=== PATIENT | female | born 2000 | race Caucasian/White ===

== ENCOUNTER 2023-08-23 10:45 | Emergency (ER) | payer BC, SELFPAY ==
[2023-08-23 10:53] VITALS: BP 119/74; PULSE 101; RESP 16; TEMP 36.4; O2SAT 100
--- NOTE | 2023-08-23 11:05 | ED.EAR ---
HPI - Ear Problem General Chief complaint: Ear Stated complaint: Ear Infection Time Seen by Provider: 08/23/23 11:06 Source: patient, RN notes reviewed and old records reviewed Mode of arrival: ambulatory Limitations: no limitations History of Present Illness HPI Narrative: 23-year-old female presents to [facility] with complaint of left ear pain. Patient states was having difficulty hearing, ear pressure for about 2 weeks the pain started 2-3 days ago. Patient denies any other symptoms. MD Complaint: ear pain Location: left ear Duration: constant Severity: moderate Related Data Allergies Allergy/AdvReac Type Severity Reaction Status Date / Time No Known Allergies Allergy Unverified 12/01/14 16:21 Review of Systems Constitutional: Constitutional: Reports no additional constitutional complaints Eyes: Eyes: Reports no additional eye complaints ENT: Reports as per HPI and Reports otalgia Cardiovascular: Cardiovascular: Reports no additional cardiovascular complaints Respiratory: Respiratory: Reports no additional respiratory complaints Neurologic: Reports system reviewed and no additional complaints, except as documented PMFSH Comments At the time of my signature, I reviewed and agree with the nursing past medical, surgical, social, and family history. There is no relevant family history pertinent to the patient complaint. Exam Const: General: cooperative, healthy appearing, no acute distress and well nourished Nutritional Appearance: well nourished Orientation/consciousness: patient oriented x3 Limitations: no limitations HENMT: Head: normal to inspection and normocephalic Ears: external ears normal, TM normal on the right, mastoids normal, Abnormal EAC present and TM abnormal dull, wth effusion serosanguinous, erythematous and with loss of landmarks Face/Nose/Sinus: normal facial exam Face and sinus: normal facial exam Mouth: Yes Normal oral and palatal mucosa present, Yes oropharynx normal and Yes moist mucous membranes Throat: posterior oropharynx normal, tonsils normal, uvula midline and no uvular edema Eyes: General: appearance normal, both eyes and all related structures Sclera: sclerae normal Pupils: Equal, round and reactive pupils present Resp: Effort & Inspection: normal respiratory effort, able to speak in complete sentences, no audible wheezes, no cough, no respiratory distress and no retractions Auscultation: clear to auscultation bilaterally, no crackles, no rales, no rhonchi and no wheezes Cardio: Rate: regular rate Rhythm: regular rhythm Skin: General skin exam: normal color and no rashes or lesions noted Neuro: General: patient oriented x3 Cranial nerves: Yes Equal, round and reactive pupils present Psych: Appearance: grossly normal Course Course Emergency Course: Some parts of this dictation were generated by voice recognition software and may contain typographical and/or grammatical inaccuracies. Level of Care: Express Care Visit Vital Signs Vital signs: Vital Signs Temperature 97.6 F 08/23/23 10:53 Pulse Rate 101 H 08/23/23 10:53 Respiratory Rate 16 08/23/23 10:53 Blood Pressure 119/74 08/23/23 10:53 Pulse Oximetry 100 08/23/23 10:53 Oxygen Delivery Room Air 08/23/23 10:53 Temperature 97.6 F 08/23/23 10:53 Pulse Rate 101 H 08/23/23 10:53 Respiratory Rate 16 08/23/23 10:53 Blood Pressure 119/74 08/23/23 10:53 Pulse Oximetry 100 08/23/23 10:53 Oxygen Delivery Room Air 08/23/23 10:53 Reviewed Medical Decision Making MDM Narrative Medical decision making narrative: Patient with complaint of left earache for 3 days. Patient left ear canal swollen, TM erythematous, bulging, series fluid behind the ear. Will treat patient for acute bacterial otitis media. Patient resting comfortably without signs or symptoms of acute distress, nontoxic appearing, vital signs stable. Discharge instructions reviewed with patient, as we
== END 2023-08-23 11:13 | disposition home or self-care (01) ==
PROVIDERS: Emergency Provider Registered Nurse
DX: H66.92 Otitis media, unspecified, left ear (principal)
CPT/HCPCS: 99213; G0463